=== PATIENT | male | born 1945 | race Caucasian/White ===

== ENCOUNTER 2023-04-27 13:22 | Outpatient (REF) | payer MEDICARE, OTHER, SELFPAY ==
[2023-04-27 15:16] LABS: Anion Gap 16 (12-20); Blood Urea Nitrogen 39 mg/dL (9-16); Calcium 9.4 mg/dL (8.4-10.2); Carbon Dioxide 22 mmol/L (22-29); Chloride 107 mmol/L (96-108); Estimated Glomerular Filt Rate 39; Glucose Random 89 mg/dL (60-115); Potassium 4.7 mmol/L (3.3-5.1); Sodium 140 mmol/L (135-145)
[2023-04-27 15:35] LABS: T4 Thyroxine 5.9 ug/dL (4.5-12.0); Thyroid Stimulating Hormone 0.99 uIU/mL (0.32-4.0); Vitamin B12 386 pg/mL (200-900)
== END 2023-04-27 13:23 | disposition home or self-care (01) ==
LOC: HO.LAB 13:22
PROVIDERS: PCP Internal Medicine; Visit Provider Psychiatry & Neurology Neurology
DX: G31.84 Mild cognitive impairment of uncertain or unknown etiology (principal)
CPT/HCPCS: 36415; 80048; 82607; 84436; 84443

== ENCOUNTER 2023-05-25 09:00 | Outpatient (REF) | payer MEDICARE, SELFPAY ==
--- NOTE | ~2023-05-25 | CT_ITS ---
EXAMINATION: CT head/brain wo IV con CLINICAL INFORMATION: Reason for Exam [facility] COMPARISON: None. TECHNIQUE: Contiguous axial imaging was performed from the skull base to vertex without intravenous contrast. Sagittal and coronal reformatted images were obtained. This CT examination was performed using dose optimization techniques as appropriate, variously including the following: * Automated exposure control * Adjustment of mA and/or kV according to patient size (this includes techniques or standardized protocols for targeted exams where dose is matched to indication/reason for exam; i.e. extremities or head) Use of iterative reconstruction technique DLP: 718.7 mGy-cm FINDINGS: No acute osseous or soft tissue abnormality. The mastoid air cells and visualized portions of the paranasal sinuses are well aerated. There is no evidence of acute intracranial hemorrhage or territorial infarction. No abnormal mass effect or midline shift is seen. Tierney to white matter differentiation is well preserved. No extra-axial fluid collections are identified. No hydrocephalus. Proportional prominence of the ventricles and sulcal spaces is consistent with mild to moderate volume loss. Patchy periventricular and deep white matter hypoattenuation is consistent with mild small vessel ischemic changes. CT/CT head/brain wo IV con IMPRESSION: 1. No acute intracranial abnormality including hemorrhage, mass effect, hydrocephalus, or acute territorial edematous infarction. 2. Generalized cerebral volume loss and mild chronic microangiopathic white matter hypodensity
== END 2023-05-25 09:01 | disposition home or self-care (01) ==
LOC: HO.CT 09:00
PROVIDERS: Visit Provider Psychiatry & Neurology Neurology
DX: G31.84 Mild cognitive impairment of uncertain or unknown etiology (principal)
CPT/HCPCS: 70450

== ENCOUNTER 2023-08-22 11:18 | Outpatient (REF) | payer MEDICARE, SELFPAY ==
[2023-08-22 11:55] LABS: Ammonia 30 umol/L (13-55)
[2023-08-22 13:05] LABS: Anion Gap 17 (12-20); Blood Urea Nitrogen 27 mg/dL (9-16); Calcium 9.4 mg/dL (8.4-10.2); Carbon Dioxide 22 mmol/L (22-29); Chloride 107 mmol/L (96-108); Estimated Glomerular Filt Rate 41; Glucose Random 91 mg/dL (60-115); Potassium 4.5 mmol/L (3.3-5.1); Sodium 141 mmol/L (135-145)
== END 2023-08-22 11:19 | disposition home or self-care (01) ==
LOC: HO.LAB 11:18
PROVIDERS: Visit Provider Psychiatry & Neurology Neurology
DX: G31.84 Mild cognitive impairment of uncertain or unknown etiology (principal)
CPT/HCPCS: 36415; 80048; 82140